=== PATIENT | male | born 1960 | race Caucasian/White ===

== ENCOUNTER 2016-05-16 00:40 | Emergency (ER) | payer BC ==
[2016-05-16 01:01] VITALS: BP 140/89
[2016-05-16 02:08] LABS: CHLORIDE,CL 105 mmol/L (98-107); SODIUM,NA 138 mmol/L (136-145)
[2016-05-16] MEDS ORDERED: Take Home: Codeine/Promethazine 10-6.25 MG/5 ML Syrup 5 ML, 2 Cup Pack PO ONE (02:15)
--- NOTE | 2016-05-16 20:47 | ER ---
Date of Service: 05/16/2016 SUBJECTIVE: Luca presents to the emergency room with complaints of cough and chest congestion. The patient states that he has been experiencing these symptoms for the past week and was seen in the clinic by Nieves Wallace. The patient was prescribed a Z-Ac and did finish the course of the antibiotics. The patient states that he is still experiencing severe sinus congestion and cough. He has also experienced a fever, chills, and sweats. The patient apparently has recently returned from a skiing trip to [place] and is concerned that he is suffering from high altitude pulmonary edema. He stated that the highest that he was, was approximately 9000 feet. He states that he has not received his flu shot. He did fly out to [place] and his legs were in a state of being unable to move for several hours on each way. PAST MEDICAL HISTORY: 1. History of atrial fibrillation with RVR. Apparently, this is a transient problem and has since resolved. 2. Hypertension. 3. GERD. MEDICATIONS: 1. Amlodipine/benazepril 2.5/10. 2. Omeprazole. ALLERGIES: NKDA. REVIEW OF SYSTEMS: General: Positive for fever and chills. HEENT: Positive for sore throat, rhinorrhea, and congestion. Respiratory: Positive for cough, nonproductive. Denies any significant shortness of breath. Cardiac: Denies any substernal chest pain. No jaw, arm, neck, or back pain. Gastrointestinal: No nausea, vomiting, or diarrhea. No melena, hematochezia, or hematemesis. Genitourinary: Denies any dysuria. Musculoskeletal: No myalgias or arthralgias. Neurologic: No fainting, blackouts, or lightheadedness. PHYSICAL EXAMINATION: General: This is a 55-year-old male patient, who is in no acute distress. Vital Signs: Temperature is 36.6, pulse rate is 69, blood pressure is 140/89, respiratory rate is 28, O2 saturations 100%. Skin: Warm, pink, and dry. HEENT: Head is normocephalic, atraumatic. Eyes; PERRLA, extraocular movements are intact. Ears, TMs are clear. Mouth, oral mucosa is moist. No erythema or exudate noted in the hypopharynx. Neck: Supple. No masses. He does have some mild cervical lymphadenopathy. Lungs: Diminished with some mild wheezing bilaterally. Heart: Regular rate and rhythm. Abdomen: Soft, nontender. There is no hepatosplenomegaly noted. There is no masses noted. Extremities: Without edema. Neurologic: The patient is alert, oriented, and answers all questions appropriately. His speech is fluent. His gait is within normal limits. LABORATORY DATA: CBC was obtained. WBCs 5.5, hemoglobin is 15.1, platelets are 226. Coags; PT is 11.0, INR is 1.0. D-dimer is 0.56. Chemistry; sodium is 138, potassium is 3.8, chloride is 105, bicarb is 25, BUN is 17, creatinine is 1.0, creatinine clearance is 78.91, GFR is greater than 60, glucose is 117, calcium is 8.3. CK is mildly elevated at 323, CK-MB is 3.2, troponin is less than 0.017. BNP is 52. Influenza swab was obtained. The patient was positive for influenza B. PA and lateral chest x-ray was obtained. There was no evidence of any obvious infiltrate. ASSESSMENT: Influenza B. PLAN: It is long past the 72-hour time frame to start the patient on Tamiflu. I did start the patient on some Phenergan with codeine to help with cough. He should drink plenty of fluids. Tylenol, ibuprofen for discomfort. Return to the emergency room if he develops worsening cough, chest congestion, or other worrisome signs or symptoms. All questions were answered. MWK: 05/16/2016 18:22:27 MODL: 05/16/2016 20:39:20 /[id number]
== END 2016-05-16 02:28 | disposition home or self-care (01) ==
LOC: VM.ED 00:40
DX: J11.1 Influenza due to unidentified influenza virus with other respiratory manifestations (principal); I48.91 Unspecified atrial fibrillation; I10 Essential (primary) hypertension; K21.9 Gastro-esophageal reflux disease without esophagitis; Z79.899 Other long term (current) drug therapy
CPT/HCPCS: 36415; 71020; 80048; 82550; 82553; 83880; 84484; 85025; 85379; 85610; 87804; 93005; 99285; A9270

== ENCOUNTER 2022-04-14 08:08 | Day surgery (SDC) | payer BC, OTHER ==
[2022-04-14] MEDS: Lactated Ringers 1,000 ML IV SCH (08:35)
[2022-04-14] MEDS ORDERED: fentaNYL 100 MCG/2 ML SDV ONE (10:09)
[2022-04-14] MEDS ORDERED: Propofol 200 MG/20 ML SDV ONE ×2 (10:09→11:22)
[2022-04-14 12:10] VITALS: BP 129/83; PULSE 52
== END 2022-04-14 12:45 | disposition home or self-care (01) ==
LOC: VM.SDS 08:08
PROVIDERS: ATTEND Student in an Organized Health Care Education/Training Program
DX: Z12.11 Encounter for screening for malignant neoplasm of colon (principal); G43.909 Migraine, unspecified, not intractable, without status migrainosus; G47.30 Sleep apnea, unspecified; I10 Essential (primary) hypertension; E66.9 Obesity, unspecified; N40.0 Benign prostatic hyperplasia without lower urinary tract symptoms; I48.0 Paroxysmal atrial fibrillation; K21.9 Gastro-esophageal reflux disease without esophagitis; Z98.890 Other specified postprocedural states; Z68.33 Body mass index [BMI] 33.0-33.9, adult; Z79.899 Other long term (current) drug therapy
CPT/HCPCS: 00812; J2704; J3010; J7120

== ENCOUNTER 2025-02-07 12:18 | Emergency (ER) | payer BC, OTHER ==
[2025-02-07 12:33] VITALS: BP 128/70; PULSE 67
== END 2025-02-07 12:51 | disposition left against medical advice (07) ==
LOC: VM.ED 12:18
DX: M25.561 Pain in right knee (principal); E66.9 Obesity, unspecified; K21.9 Gastro-esophageal reflux disease without esophagitis; I10 Essential (primary) hypertension; Z79.899 Other long term (current) drug therapy; Z90.49 Acquired absence of other specified parts of digestive tract; Z90.89 Acquired absence of other organs
CPT/HCPCS: 99283